=== PATIENT | male | born 1985 | race African-American/Black ===

== ENCOUNTER 2016-05-13 19:27 | Emergency (ER) | payer SELFPAY ==
[~2016-05-13] VITALS: Ht 182.9 cm; Wt 72.6 kg
[2016-05-13 19:34] VITALS: BP 137/78
[2016-05-13] MEDS ORDERED: Albuterol ud Inhalation HHN ONE (20:00)
[2016-05-13] MEDS ORDERED: Ipratropium 0.02% Inh Soln 2.5ml UD HHN ONE (20:00)
[2016-05-13] MEDS ORDERED: PREDNISONE20 MG ORAL (20:43)
[2016-05-13] MEDS ORDERED: PROMETHAZINE-D118 ML ORAL (20:43)
[2016-05-13] MEDS ORDERED: PROAIR HFA8.5 GM INH (20:43)
[2016-05-13 20:49] VITALS: BP 137/78
--- NOTE | 2016-05-13 21:10 | Emergency Room Report ---
History of Present Illness General Chief Complaint: Flu Like Symptoms Source: Patient Present Illness HPI The patient is a 31-year-old male with a history of asthma presenting for productive white cough which began 1 week prior. The patient states that he has not taken his asthma medications in the last few months because the symptoms have been under control. The patient denies any other symptoms including fever, chills, night sweats, hemoptysis, headache, neck pain, sore throat Allergies: Coded Allergies: No Known Allergies (Unverified , 05/13/16) Patient History Past Medical History: see triage record Pertinent Family History: none Reviewed Nursing Documentation: PMH: Agreed, PSxH: Agreed Nursing Documentation-PMH Hx Asthma: Yes Review of Systems All Other Systems: negative except mentioned in HPI Physical Exam Vital Signs Date Time Temp Pulse Resp B/P Pulse Ox O2 Delivery O2 Flow Rate FiO2 05/13/16 19:29 97.7 75 20 137/78 97 Room Air Sp02 EP Interpretation: reviewed, normal General Appearance: no apparent distress, alert, GCS 15, non-toxic Head: normocephalic, atraumatic Eyes: bilateral eye PERRL, bilateral eye normal inspection ENT: hearing grossly normal, normal pharynx, no angioedema, normal voice Neck: full range of motion, supple/symm/no masses Respiratory: chest non-tender, lungs clear, no respiratory distress, no accessory muscle use, decreased breath sounds, speaking full sentences Cardiovascular #1: regular rate, rhythm, no edema Musculoskeletal: back normal, gait/station normal, normal range of motion, non- tender Neurologic: alert, oriented x3, responsive, motor strength/tone normal, sensory intact, speech normal Psychiatric: judgement/insight normal, memory normal, mood/affect normal, no suicidal/homicidal ideation Skin: normal color, no rash, warm/dry, well hydrated Lymphatic: no adenopathy Medical Decision Making PA Attestation Dr. Alvarez is my supervising physician. Patient management was discussed with my supervising physician Diagnostic Impression: Primary Impression: Asthma ER Course The patient is a 31-year-old male with a history of asthma presenting for productive white cough Differential diagnosis considered but not limited to: Asthma, bronchitis, pharyngitis Physical exam: Vitals within normal limits. No apparent distress HEENT: No tonsillar edema or erythema. No exudate. No cervical lymphadenopathy. Lungs: Clear to auscultation, but decreased breath sounds. No wheezing. The patient is given a breathing treatment and states that he is feeling better. Lung sounds are clear and have increased. The pt will be VA'ed home with prescription for albuterol, prednisone, and cough medication Last Vital Signs Date Time Temp Pulse Resp B/P Pulse Ox O2 Delivery O2 Flow Rate FiO2 05/13/16 20:49 97.7 75 18 137/78 98 Room Air Status: improved Disposition: HOME, SELF-CARE Condition: Improved Scripts Prednisone* (PREDNISONE*) 20 Mg Tablet 20 MG ORAL DAILY, #5 TAB 0 Refills Prov: OWEN MARRERO P.A. 05/13/16 Albuterol Sulfate* (PROAIR HFA*) 8.5 Gm Hfa.aer.ad 2 PUFFS INH Q6H, #8.5 GM 0 Refills Prov: OWEN MARRERO P.A. 05/13/16 D-Methorphan Hb/Prometh Hcl* (PROMETHAZINE-DM SYRUP*) 118 Ml Syrup 5 ML ORAL Q6H Y for For Cough, #118 ML 0 Refills Prov: OWEN MARRERO P.A. 05/13/16 Patient Instructions: Asthma, Adult Additional Instructions: I discussed my findings with the patient. All questions and concerns have been answered. Treatment and medication compliance have been addressed. I advised the patient that they need to follow up with PMD in 3-5 days. Return to ED if symptoms worsen, new symptoms arise, or if needed for any reason. Patient verbalized understanding of discharge instructions. OWEN MARRERO May 13, 2016 21:10
== END 2016-05-13 20:50 | disposition home or self-care (01) ==
LOC: EMR 19:40
DX: J45.909 Unspecified asthma, uncomplicated (principal)
CPT/HCPCS: 94640; 94664; 99283